=== PATIENT | male | born 1975 | race Caucasian/White ===

== ENCOUNTER 2017-06-09 07:49 | Emergency (ER) | payer SELFPAY ==
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
--- NOTE | 2017-06-09 09:40 | RADIOLOGY REPORT (SQ) ---
EXAM DESCRIPTION: FOOT RIGHT COMPLETE COMPLETED DATE/TIME: 06/09/2017 9:08 am REASON FOR STUDY: reinjured lateral dorsl foot COMPARISON: None. NUMBER OF VIEWS: Three views. TECHNIQUE: AP, lateral and oblique radiographic images acquired of the right foot. LIMITATIONS: None. FINDINGS: MINERALIZATION: Normal. BONES: An oblique nondisplaced fracture is seen of the proximal shaft of the 5th metatarsal. JOINTS: Joint spaces intact. SOFT TISSUES: No metallic foreign bodies. OTHER: No other significant finding. IMPRESSION: Oblique nondisplaced fracture 5th metatarsal. TECHNICAL DOCUMENTATION: JOB ID: [id number] [employer]- All Rights Reserved
[2017-06-09 10:08] VITALS: BP 108/63
== END 2017-06-09 10:13 | disposition home or self-care (01) ==
LOC: ER 07:49
PROC: 2W3QX1Z Immobilization of Right Lower Leg using Splint (ICD-10-PCS; principal; 2017-06-09)
DX: S92.351A Displaced fracture of fifth metatarsal bone, right foot, initial encounter for closed fracture (principal); W20.8XXA Other cause of strike by thrown, projected or falling object, initial encounter; F17.200 Nicotine dependence, unspecified, uncomplicated
CPT/HCPCS: 99283

== ENCOUNTER 2018-03-29 18:22 | Emergency (ER) | payer SELFPAY ==
[2018-03-29] MEDS ORDERED: CLINDAMYCIN 600 MG/D5W RTU 600 MG/50 ML RTUPB IV ONE (19:36)
--- NOTE | 2018-03-29 20:02 | ER Document Report ---
ED Skin Rash/Insect Bite/Abscs - General Chief Complaint: Abscess Stated Complaint: POSSIBLE ABCESS Time Seen by Provider: 03/29/18 19:35 Information source: Patient Notes: Patient is a 42-year-old male presenting to the emergency department with a indurated area to the left face. Patient stated that on night he saw what he thought was a pimple he tried to pop it and then was playing with the area stated the redness and induration has just increased since then. Patient stated history of same on his back "years ago". Stated his was able to "pop that one". Denies any history of MRSA or need for IV antibiotics for skin infections. Denies fever, malaise, tooth involvement or pain. Denies smoking, denies illicit drug use, states he drinks 2 alcoholic beverages a month. No medical problems, takes no medications on a daily basis, no known drug allergies. TRAVEL OUTSIDE OF THE [place] IN LAST 30 DAYS: No - Related Data Allergies/Adverse Reactions: No Known Allergies Allergy (Unverified 06/09/17 07:54) Past Medical History - General Information source: Patient - Social History Smoking Status: Former Smoker Lives with: Family Family History: Reviewed & Not Pertinent Patient has suicidal ideation: No Patient has homicidal ideation: No Renal/ Medical History: Denies: Hx Peritoneal Dialysis Past Surgical History: Reports: Other - eye surgery age 5 Review of Systems - Review of Systems Constitutional: See HPI. denies: Chills, Fever EENT: See HPI Cardiovascular: No symptoms reported Respiratory: No symptoms reported Gastrointestinal: No symptoms reported Genitourinary: No symptoms reported Male Genitourinary: No symptoms reported Musculoskeletal: No symptoms reported Skin: See HPI Hematologic/Lymphatic: No symptoms reported Neurological/Psychological: No symptoms reported Physical Exam - Vital signs Vitals: Temp Pulse Resp BP Pulse Ox 97.7 F 76 16 127/81 H 100 03/29/18 18:26 03/29/18 18:26 03/29/18 18:26 03/29/18 18:26 03/29/18 18:26 - Notes Notes: GENERAL: Alert, interacts well. No acute distress. HEAD: Normocephalic, atraumatic. EYES: Pupils equal, round, and reactive to light. Extraocular movements intact. ENT: Oral mucosa moist, tongue midline. No redness or swelling noted to gumline , no Aryan's angina, full range of motion mandible. NECK: Full range of motion. Supple. Trachea midline. No cervical lymphadenopathy LUNGS: Clear to auscultation bilaterally, no wheezes, rales, or rhonchi. No respiratory distress. HEART: Regular rate and rhythm. No murmur ABDOMEN: Soft, non-tender. Non-distended. Bowel sounds present in all 4 quadrants. EXTREMITIES: Moves all 4 extremities spontaneously. No edema, normal radial and dorsalis pedis pulses bilaterally. No cyanosis. BACK: no cervical, thoracic, lumbar midline tenderness. No saddle anesthesia, normal distal neurovascular exam. NEUROLOGICAL: Alert and oriented x3. Normal speech. [cranial nerves II through XII grossly intact]. PSYCH: Normal affect, normal mood. SKIN: Warm, dry, 3 cm x 4 cm indurated area to left mandible with minor surrounding redness. Course - Re-evaluation Re-evalutation: 03/29/18 22:21 Incision and drainage performed, copious amounts of purulent fluid expressed from abscessed area. Patient tolerated procedure well. Due to surrounding redness patient will be placed on oral antibiotics. Talked to patient about return precautions. - Vital Signs Vital signs: Temp Pulse Resp BP Pulse Ox 98.7 F 71 20 110/70 95 03/29/18 22:46 03/29/18 22:46 03/29/18 22:46 03/29/18 22:46 03/29/18 22:46 - Laboratory Result Diagrams: 03/29/18 20:30 03/29/18 20:30 Laboratory results interpreted by me: 03/29/18 20:30 WBC 16.1 H Absolute Neutrophils 11.7 H Procedures - Incision and Drainage Left lower mandible Type: Simple, Single Anesthetic type: 1% Lidocaine mL's of anesthetic: 5 Blade size: 11 I&D procedure: Betadine prep applied Incision Method: Incision made by scalpel Amount/type of drainage: Copious, purulent Discharge - Discharge Clinical Impression: Facial abscess Condition: Stable Disposition: HOME, SELF-CARE Instructions: Abscess ([facility]), Cephalexin ([facility]), Post Incision and Drainage Additional Instructions: You have been diagnosed and treated for a skin infection commonly known as an abscess. Due to the surrounding redness and swelling to your lower jaw you will be treated with oral antibiotics. Take both antibiotics as prescribed. Return to the emergency department should you develop fever, the redness or swelling increases. Follow up with primary care in 24-48 hours. Prescriptions: Cephalexin Monohydrate [Keflex 500 mg Capsule] 500 mg PO Q6H 7 Days #28 capsule Cephalexin Monohydrate [Keflex 500 mg Capsule] 500 mg PO Q6H 5 Days capsule Sulfamethoxazole/Trimethoprim [Bactrim Ds Tablet] 1 each PO BID 7 Days #14 tablet
[2018-03-29 20:49] LABS: ABSOLUTE BASOPHILS # (AUTO) 0.1 10^3/uL (0.0-0.2); ABSOLUTE EOSINOPHILS # (AUTO) 0.1 10^3/uL (0.0-0.6); ABSOLUTE LYMPHOCYTES (AUTO) 2.8 10^3/uL (0.5-4.7); ABSOLUTE MONOCYTES (AUTO) 1.4 10^3/uL (0.1-1.4); ABSOLUTE NEUT (AUTO) 11.7 10^3/uL (1.7-8.2); BASOPHILS % (AUTO) 0.7 % (0-2); EOSINOPHILS % (AUTO) 0.9 % (0-6); HEMATOCRIT 45.8 % (37.9-51.0); HEMOGLOBIN 15.8 g/dL (13.5-17.0); LYMPHOCYTES % (AUTO) 17.2 % (13-45); MEAN CORPUSCULAR HEMOGLOBIN 30.5 pg (27.0-33.4); MEAN CORPUSCULAR HGB CONC 34.5 g/dL (32.0-36.0); MEAN CORPUSCULAR VOLUME 88 fl (80-97); MONOCYTES % (AUTO) 8.8 % (3-13); PLATELET COUNT 234 10^3/uL (150-450); RED BLOOD COUNT 5.19 10^6/uL (4.35-5.55); SEGMENTED NEUTROPHILS % (AUTO) 72.4 % (42-78); TOTAL CELLS COUNTED % (AUTO) 100 %; WHITE BLOOD COUNT 16.1 10^3/uL (4.0-10.5)
[2018-03-29] MEDS ORDERED: ONDANSETRON HCL INJ/PF 4 MG/2 ML SDV IV ONE (20:56)
[2018-03-29] MEDS ORDERED: MORPHINE SULFATE 10 MG/ML INJ IV ONE (20:56)
[2018-03-29 21:38] LABS: ANION GAP 15 (5-19); BLOOD UREA NITROGEN 18 mg/dL (7-20); CALCIUM 9.4 mg/dL (8.4-10.2); CARBON DIOXIDE 25 mmol/L (22-30); CHLORIDE 103 mmol/L (98-107); GLUCOSE 103 mg/dL (75-110); POTASSIUM 4.7 mmol/L (3.6-5.0)
[2018-03-29] MEDS ORDERED: HYDROMORPHONE HCL INJ/PF 2 MG/ML AMPULE IV ONE (22:20)
[2018-03-29 23:07] VITALS: BP 110/70
== END 2018-03-29 23:07 | disposition home or self-care (01) ==
LOC: ER 18:22
DX: L02.01 Cutaneous abscess of face (principal); Z87.891 Personal history of nicotine dependence
CPT/HCPCS: 36415; 85025; 80048; 10060; J2270; J1170; J2405